=== PATIENT | female | born 1940 | race Caucasian/White ===

== ENCOUNTER 2017-08-29 19:01 | Emergency (ER) | payer MEDICARE, MEDICAID ==
[~2017-08-29] VITALS: Ht 149.9 cm; Wt 46.8 kg
[2017-08-29 20:09] LABS: BASOPHILS # (AUTO) 0.06 K/uL (0.00-0.20); BASOPHILS % (AUTO) 0.6 % (0.0-2.0); EOSINOPHILS % (AUTO) 0.88 % (1.0-6.0); HEMATOCRIT 37.8 % (36-46); HEMOGLOBIN 12.5 g/dL (12.0-16.0); LYMPHOCYTES % (AUTO) 27.7 % (22.0-44.0); MEAN CORPUSCULAR HEMOGLOBIN 32.2 pg (26.0-34.0); MEAN CORPUSCULAR HGB CONC 33.1 G/dL (31.0-37.0); MEAN CORPUSCULAR VOLUME 97 fL (80-100); MONOCYTES # (AUTO) 0.8 K/uL (0.1-1.0); MONOCYTES % (AUTO) 7.3 % (2.0-9.0); NEUTROPHILS # (AUTO) 6.9 K/uL (1.8-7.7); NEUTROPHILS % (AUTO) 63.6 % (40.0-70.0); PLATELET COUNT (AUTO) 285 K/uL (150-450); RED BLOOD CELL COUNT(AUTO) 3.88 MIL/uL (4.00-5.20); RED CELL DISTRIBUTION WIDTH 15.5 % (11.5-14.5); WHITE BLOOD COUNT (AUTO) 10.9 K/uL (4.5-11.0)
[2017-08-29 20:33] LABS: ORIG DRAW (USER) PTCARESTAF
[2017-08-29 20:47] LABS: GLUCOSE,POINT OF CARE 71 MG/DL (70-110)
[2017-08-29 20:52] LABS: ADD UA MICROSCOPIC YES; APPEARANCE,URINE CLEAR (CLEAR); GLUCOSE, URINE (UA) NEGATIVE (NEGATIVE); KETONES,URINE NEGATIVE (NEGATIVE); LEUKOCYTE ESTERASE ,URINE NEGATIVE (NEGATIVE); OCCULT BLOOD,URINE TRACE (NEGATIVE); PH,URINE 6.5 (5.0-8.0); PROTEIN,URINE SEE CONFIRM (NEGATIVE)
[2017-08-29 20:53] LABS: RBC,URINE 0-2 /HPF (0-2); SULFOSALICYLIC ACID,URINE 1+ (Negative); WBC,URINE None Seen /HPF (0-5)
[2017-08-29 20:55] LABS: ANION GAP 11 mmol/L (8-16); CALCIUM, TOTAL 8.3 mg/dL (8.8-10.5); CARBON DIOXIDE 22 mmol/L (22-29); CHLORIDE 103 mmol/L (98-107); CREATININE 1.95 mg/dL (0.60-1.30); GLOMERULAR FILTR. RATE CALC 25 mL/min (>60); SODIUM SERUM 136 mmol/L (136-145); UREA NITROGEN, BLOOD 65 mg/dL (7-18)
[2017-08-29 20:59] LABS: INR 1.1 (0.9-1.1); PROTHROMBIN TIME 11.1 SEC (9.4-11.6)
[2017-08-29 21:03] LABS: AMMONIA 15 umol/L (11-32)
[2017-08-29 21:04] LABS: TROPONIN I < 0.02 ng/mL (0.00-0.05)
[2017-08-29 21:21] LABS: ALANINE AMINOTRANSFERASE 20 U/L (12-78); ALBUMIN 2.9 g/dL (3.4-5.0); ASPARTATE AMINOTRANSFERASE 19 U/L (15-37); BILIRUBIN,TOTAL 0.2 mg/dL (0.1-1.0); CREATINE KINASE MB 1.8 ng/mL (0-5); CREATINE KINASE, TOTAL 89 U/L (26-192); TOTAL PROTEIN, SERUM 6.8 g/dL (6.4-8.2)
[2017-08-29 21:32] LABS: GLUCOSE,POINT OF CARE 146 MG/DL (70-110)
[2017-08-29 22:17] VITALS: BP 154/79
[2017-08-29 22:27] LABS: GLUCOSE,POINT OF CARE 218 MG/DL (70-110)
== END 2017-08-29 22:29 | disposition home or self-care (01) ==
LOC: EMS 19:05
DX: E11.65 Type 2 diabetes mellitus with hyperglycemia (principal); F03.90 Unspecified dementia, unspecified severity, without behavioral disturbance, psychotic disturbance, mood disturbance, and anxiety; I10 Essential (primary) hypertension
CPT/HCPCS: 51702; 82962; 93005; 99285

== ENCOUNTER 2020-01-02 17:07 | Inpatient (IN) | payer MEDICARE, MEDICAID ==
[~2020-01-02] VITALS: Ht 165.1 cm; Wt 60.3 kg
[2020-01-02] MEDS ORDERED: BUME1TAB34 PO (17:42)
[2020-01-02] MEDS ORDERED: INSLAN SQ ×2 (17:42→21:54)
[2020-01-02 18:10] LABS: BASOPHILS % (AUTO) 0.3 % (0.0-2.0); EOSINOPHILS % (AUTO) 0.9 % (1.0-6.0); HEMATOCRIT 22.2 % (36-46); LYMPHOCYTES % (AUTO) 5.4 % (22.0-44.0); MEAN CORPUSCULAR HEMOGLOBIN 30.6 pg (26.0-34.0); MEAN CORPUSCULAR HGB CONC 31.4 G/dL (31.0-37.0); MEAN CORPUSCULAR VOLUME 98 fL (80-100); MONOCYTES # (AUTO) 0.9 K/uL (0.1-1.0); MONOCYTES % (AUTO) 4.8 % (2.0-9.0); NEUTROPHILS # (AUTO) 16.4 K/uL (1.8-7.7); PLATELET COUNT (AUTO) 335 K/uL (150-450); RED BLOOD CELL COUNT(AUTO) 2.28 MIL/uL (4.00-5.20); RED CELL DISTRIBUTION WIDTH 19.6 % (11.5-14.5)
[2020-01-02 18:15] LABS: CALCIUM, TOTAL 8.4 mg/dL (8.8-10.5); CREATININE 3.55 mg/dL (0.60-1.30); NEUTROPHILS % (AUTO) 88.6 % (40.0-70.0); POTASSIUM 3.6 mmol/L (3.5-5.1)
[2020-01-02 18:18] LABS: INR 1.1 (0.9-1.1); PROTHROMBIN TIME 11.5 SEC (9.4-11.6)
[2020-01-02 18:21] LABS: ALBUMIN 1.9 g/dL (3.4-5.0); BILIRUBIN,TOTAL 0.3 mg/dL (0.1-1.0); TOTAL PROTEIN, SERUM 6.9 g/dL (6.4-8.2)
[2020-01-02 18:30] LABS: C-REACTIVE PROTEIN QUANT 13.54 mg/dL (0.00-0.30)
[2020-01-02] MEDS ORDERED: AZITHROMYCIN 500 MG/NS 250 ML IV ONE (18:30)
[2020-01-02] MEDS ORDERED: CefTRIAXone 1 GM/DEXTROSE 50 ML IV ONE (18:30)
[2020-01-02] MEDS ORDERED: ACETAMINOPHEN 325 MG TABLET PO PRN (19:15)
[2020-01-02] MEDS ORDERED: 0.9% SODIUM CHLORIDE 10 ML SYRINGE IVP PRN (19:15)
[2020-01-02] MEDS ORDERED: LOSA-88 PO (21:54)
[2020-01-02] MEDS ORDERED: CLOP75TA3 PO (21:54)
[2020-01-02] MEDS ORDERED: PYRI50 PO (21:54)
[2020-01-02] MEDS ORDERED: PANT40TA25 PO (21:54)
[2020-01-02] MEDS ORDERED: CALC0.25 PO (21:54)
[2020-01-02] MEDS ORDERED: AMLO5TAB9 PO (21:54)
[2020-01-02] MEDS ORDERED: ASPI-728 PO (21:54)
[2020-01-02] MEDS ORDERED: CARV12 PO (21:54)
[2020-01-02] MEDS ORDERED: MIRT30 PO (21:54)
[2020-01-02] MEDS ORDERED: CARV6 PO (21:54)
[2020-01-02] MEDS ORDERED: ATOR40TA28 PO (21:54)
[2020-01-02] MEDS ORDERED: ERGO500054 PO (21:54)
[2020-01-02] MEDS ORDERED: FOLI1 PO (21:54)
[2020-01-02] MEDS ORDERED: TRAZ-252 PO (21:54)
[2020-01-02] MEDS ORDERED: CYAN100T3 PO (21:54)
[2020-01-02] MEDS ORDERED: ALLO100T PO (21:54)
[2020-01-02] MEDS ORDERED: SITA100 PO (21:54)
[2020-01-02] MEDS ORDERED: LEVO50 PO (21:54)
[2020-01-02 22:25] VITALS: BP 119/56
[2020-01-03] VITALS (11 sets, daily range): BP systolic 126–140; BP diastolic 41–61
[2020-01-03 05:41] LABS: GLUCOMETER DEV NAME(LOC) 5N.1; GLUCOSE,POINT OF CARE 122 MG/DL (70-110)
[2020-01-03 06:40] LABS: BASOPHILS % (AUTO) 0.1 % (0.0-2.0); EOSINOPHILS % (AUTO) 0.9 % (1.0-6.0); LYMPHOCYTES # (AUTO) 1.8 K/uL (1.0-4.8); LYMPHOCYTES % (AUTO) 12.3 % (22.0-44.0); MEAN CORPUSCULAR HEMOGLOBIN 31.5 pg (26.0-34.0); MEAN CORPUSCULAR HGB CONC 32.5 G/dL (31.0-37.0); MEAN CORPUSCULAR VOLUME 97 fL (80-100); MONOCYTES # (AUTO) 0.8 K/uL (0.1-1.0); MONOCYTES % (AUTO) 5.4 % (2.0-9.0); NEUTROPHILS # (AUTO) 11.9 K/uL (1.8-7.7); NEUTROPHILS % (AUTO) 81.3 % (40.0-70.0); PLATELET COUNT (AUTO) 315 K/uL (150-450); RED BLOOD CELL COUNT(AUTO) 2.09 MIL/uL (4.00-5.20); RED CELL DISTRIBUTION WIDTH 19.2 % (11.5-14.5)
[2020-01-03 07:03] LABS: HEMOGLOBIN 6.6 g/dL (12.0-16.0)
[2020-01-03 07:04] LABS: ALBUMIN 1.7 g/dL (3.4-5.0); BILIRUBIN,TOTAL 0.2 mg/dL (0.1-1.0); CALCIUM, TOTAL 8.2 mg/dL (8.8-10.5); CREATININE 4.27 mg/dL (0.60-1.30); HEMATOCRIT 20.3 % (36-46); POTASSIUM 3.8 mmol/L (3.5-5.1); TOTAL PROTEIN, SERUM 6.1 g/dL (6.4-8.2)
[2020-01-03] MEDS: PANTOPRAZOLE SODIUM 40 MG/VIAL IVP SCH (12:01)
[2020-01-03] MEDS: FOLIC ACID 1 MG TABLET PO SCH (12:38)
[2020-01-03] MEDS: CYANOCOBALAMIN 100 MCG TABLET PO SCH ×2 (12:38→21:46)
[2020-01-03] MEDS: CLOPIDOGREL BISULFATE 75 MG TABLET PO SCH (12:38)
[2020-01-03] MEDS: LEVOTHYROXINE SODIUM 50 MCG TABLET PO SCH (12:39)
[2020-01-03] MEDS: ALLOPURINOL 100 MG TABLET PO SCH (12:39)
[2020-01-03] MEDS: PIPERACILLIN SODIUM/TAZOBACTAM 2.25 GM in DEXTROSE 5%-WATER 50 ML IV SCH ×2 (12:40→20:37)
[2020-01-03] MEDS ORDERED: SODIUM CHLORIDE 0.9% 250 ML IV ONE (12:57)
[2020-01-03] MEDS ORDERED: SODIUM CHLORIDE 0.9% 500 ML IV ONE (14:36)
[2020-01-03 15:16] LABS: GLUCOMETER DEV NAME(LOC) 5S.2A; GLUCOSE,POINT OF CARE 178 MG/DL (70-110)
[2020-01-03] MEDS ORDERED: PANTOPRAZOLE SODIUM 40 MG DR TABLET PO SCH (21:00)
[2020-01-03] MEDS ORDERED: INSULIN GLARGINE,HUM.REC.ANLOG 100 UNITS/ML SQ SCH (21:00)
[2020-01-03] MEDS: CARVEDILOL 6.25 MG TABLET PO SCH (21:46)
[2020-01-04 00:03] VITALS: BP 150/61
[2020-01-04 01:05] LABS: GLUCOMETER DEV NAME(LOC) 5N.1; GLUCOSE,POINT OF CARE 118 MG/DL (70-110)
[2020-01-04 03:49] VITALS: BP 105/69
[2020-01-04] MEDS: LEVOTHYROXINE SODIUM 50 MCG TABLET PO SCH (05:42)
[2020-01-04] MEDS: PIPERACILLIN SODIUM/TAZOBACTAM 2.25 GM in DEXTROSE 5%-WATER 50 ML IV SCH ×3 (05:51→21:52)
[2020-01-04 06:58] LABS: BASOPHILS % (AUTO) 0.3 % (0.0-2.0); EOSINOPHILS % (AUTO) 0.6 % (1.0-6.0); HEMATOCRIT 25.2 % (36-46); HEMOGLOBIN 8.3 g/dL (12.0-16.0); LYMPHOCYTES # (AUTO) 1.5 K/uL (1.0-4.8); LYMPHOCYTES % (AUTO) 10.8 % (22.0-44.0); MEAN CORPUSCULAR HGB CONC 32.9 G/dL (31.0-37.0); MEAN CORPUSCULAR VOLUME 94 fL (80-100); MONOCYTES # (AUTO) 0.7 K/uL (0.1-1.0); MONOCYTES % (AUTO) 4.8 % (2.0-9.0); NEUTROPHILS # (AUTO) 11.7 K/uL (1.8-7.7); NEUTROPHILS % (AUTO) 83.5 % (40.0-70.0); PLATELET COUNT (AUTO) 346 K/uL (150-450); RED BLOOD CELL COUNT(AUTO) 2.68 MIL/uL (4.00-5.20); RED CELL DISTRIBUTION WIDTH 19.4 % (11.5-14.5)
[2020-01-04] MEDS ORDERED: SODIUM CHLORIDE 0.9% 1,000 ML ONE ×2 (07:06)
[2020-01-04 07:12] LABS: % IRON SATURATION 21.4 % (22-44)
[2020-01-04 07:19] LABS: CALCIUM, TOTAL 8.1 mg/dL (8.8-10.5); CREATININE 5.36 mg/dL (0.60-1.30); MAGNESIUM 1.7 mg/dL (1.80-2.40); POTASSIUM 4.3 mmol/L (3.5-5.1); THYROID STIMULATING HORMONE 3.71 uIU/mL (0.36-3.74)
[2020-01-04 07:48] LABS: HEMOGLOBIN A1C 5.9 % (3.8-5.6)
[2020-01-04 07:57] VITALS: BP 133/54
[2020-01-04] MEDS: CALCITRIOL 0.25 MCG CAPSULE PO SCH (08:45)
[2020-01-04] MEDS: MIRTAZAPINE 15 MG TABLET PO SCH (08:45)
[2020-01-04] MEDS: TraZODone HCL 50 MG TABLET PO SCH (08:45)
[2020-01-04] MEDS: CARVEDILOL 6.25 MG TABLET PO SCH ×2 (08:46→21:51)
[2020-01-04] MEDS: AmLODIPine BESYLATE 5 MG TABLET PO SCH (08:46)
[2020-01-04] MEDS: EPOETIN ALFA 10,000 UNITS/ML VIAL SQ SCH (08:46)
[2020-01-04] MEDS: PANTOPRAZOLE SODIUM 40 MG/VIAL IVP SCH (08:46)
[2020-01-04] MEDS: FOLIC ACID 1 MG TABLET PO SCH (08:46)
[2020-01-04] MEDS: PYRIDOXINE HCL 50 MG TABLET PO SCH (08:46)
[2020-01-04] MEDS: CYANOCOBALAMIN 100 MCG TABLET PO SCH ×2 (08:46→21:52)
[2020-01-04] MEDS: CLOPIDOGREL BISULFATE 75 MG TABLET PO SCH (08:46)
[2020-01-04] MEDS: ALLOPURINOL 100 MG TABLET PO SCH (08:46)
[2020-01-04] MEDS: ATORVASTATIN CALCIUM 40 MG TABLET PO SCH (08:46)
[2020-01-04] MEDS ORDERED: SitaGLIPtin PHOSPHATE 100 MG TABLET PO SCH (09:00)
[2020-01-04] MEDS ORDERED: ASPIRIN 81 MG CHEWABLE TABLET PO SCH (09:00)
[2020-01-04 11:00] VITALS: BP 161/55
[2020-01-04] MEDS: SEVELAMER CARBONATE 800 MG TABLET PO SCH ×2 (12:16→17:53)
[2020-01-04] MEDS: SOD FERRIC GLUC COMPLX/SUCROSE 125 MG in SODIUM CHLORIDE 0.9% 100 ML IV SCH (14:59)
[2020-01-04 15:10] VITALS: BP 153/52
[2020-01-04 19:40] VITALS: BP 137/73
[2020-01-05] VITALS (7 sets, daily range): BP systolic 138–156; BP diastolic 53–104
[2020-01-05] MEDS: LEVOTHYROXINE SODIUM 50 MCG TABLET PO SCH (05:47)
[2020-01-05] MEDS: PIPERACILLIN SODIUM/TAZOBACTAM 2.25 GM in DEXTROSE 5%-WATER 50 ML IV SCH ×3 (05:47→22:02)
[2020-01-05 07:26] LABS: BASOPHILS % (AUTO) 0.2 % (0.0-2.0); EOSINOPHILS % (AUTO) 0.6 % (1.0-6.0); HEMATOCRIT 25.6 % (36-46); HEMOGLOBIN 8.4 g/dL (12.0-16.0); LYMPHOCYTES # (AUTO) 1.2 K/uL (1.0-4.8); MEAN CORPUSCULAR HEMOGLOBIN 30.8 pg (26.0-34.0); MEAN CORPUSCULAR HGB CONC 32.7 G/dL (31.0-37.0); MEAN CORPUSCULAR VOLUME 94 fL (80-100); MONOCYTES # (AUTO) 0.9 K/uL (0.1-1.0); MONOCYTES % (AUTO) 6.4 % (2.0-9.0); NEUTROPHILS # (AUTO) 11.6 K/uL (1.8-7.7); NEUTROPHILS % (AUTO) 83.8 % (40.0-70.0); PLATELET COUNT (AUTO) 329 K/uL (150-450); RED BLOOD CELL COUNT(AUTO) 2.73 MIL/uL (4.00-5.20); RED CELL DISTRIBUTION WIDTH 19.1 % (11.5-14.5)
[2020-01-05 07:41] LABS: ALBUMIN 1.9 g/dL (3.4-5.0); BILIRUBIN,TOTAL 0.2 mg/dL (0.1-1.0); CALCIUM, TOTAL 8.4 mg/dL (8.8-10.5); CREATININE 3.09 mg/dL (0.60-1.30); POTASSIUM 3.9 mmol/L (3.5-5.1); TOTAL PROTEIN, SERUM 6.6 g/dL (6.4-8.2)
[2020-01-05] MEDS: PANTOPRAZOLE SODIUM 40 MG/VIAL IVP SCH (09:18)
[2020-01-05] MEDS: CALCITRIOL 0.25 MCG CAPSULE PO SCH (09:19)
[2020-01-05] MEDS: SEVELAMER CARBONATE 800 MG TABLET PO SCH ×3 (09:19→18:00)
[2020-01-05] MEDS: FOLIC ACID 1 MG TABLET PO SCH (09:19)
[2020-01-05] MEDS: CYANOCOBALAMIN 100 MCG TABLET PO SCH ×2 (09:19→22:02)
[2020-01-05] MEDS: CARVEDILOL 6.25 MG TABLET PO SCH ×2 (09:19→22:02)
[2020-01-05] MEDS: ATORVASTATIN CALCIUM 40 MG TABLET PO SCH (09:19)
[2020-01-05] MEDS: AmLODIPine BESYLATE 5 MG TABLET PO SCH (09:19)
[2020-01-05] MEDS: MIRTAZAPINE 15 MG TABLET PO SCH (09:19)
[2020-01-05] MEDS: PYRIDOXINE HCL 50 MG TABLET PO SCH (09:19)
[2020-01-05] MEDS: TraZODone HCL 50 MG TABLET PO SCH (09:19)
[2020-01-05] MEDS: CLOPIDOGREL BISULFATE 75 MG TABLET PO SCH (09:19)
[2020-01-05] MEDS: ALLOPURINOL 100 MG TABLET PO SCH (12:38)
[2020-01-05] MEDS ORDERED: SODIUM CHLORIDE 0.9% 2,000 ML ONE (13:55)
[2020-01-05] MEDS: SOD FERRIC GLUC COMPLX/SUCROSE 125 MG in SODIUM CHLORIDE 0.9% 100 ML IV SCH (14:06)
[2020-01-05] MEDS ORDERED: IOVERSOL 320 MG/ML 100 ML VIAL ONE (17:43)
[2020-01-05] MEDS ORDERED: SODIUM CHLORIDE 0.9% 100 ML ONE (17:43)
[2020-01-05] MEDS ORDERED: SODIUM CHLORIDE 0.9% 250 ML IV ONE (21:37)
[2020-01-06 04:31] VITALS: BP 154/52
[2020-01-06] MEDS: LEVOTHYROXINE SODIUM 50 MCG TABLET PO SCH (05:56)
[2020-01-06] MEDS ORDERED: SODIUM CHLORIDE 0.9% 1,000 ML ONE ×2 (06:18)
[2020-01-06 06:58] LABS: BASOPHILS % (AUTO) 0.1 % (0.0-2.0); EOSINOPHILS % (AUTO) 1.2 % (1.0-6.0); HEMATOCRIT 26.7 % (36-46); HEMOGLOBIN 8.7 g/dL (12.0-16.0); LYMPHOCYTES # (AUTO) 1.8 K/uL (1.0-4.8); LYMPHOCYTES % (AUTO) 15.1 % (22.0-44.0); MEAN CORPUSCULAR HEMOGLOBIN 30.9 pg (26.0-34.0); MEAN CORPUSCULAR HGB CONC 32.7 G/dL (31.0-37.0); MEAN CORPUSCULAR VOLUME 95 fL (80-100); NEUTROPHILS # (AUTO) 9.1 K/uL (1.8-7.7); NEUTROPHILS % (AUTO) 75.6 % (40.0-70.0); PLATELET COUNT (AUTO) 333 K/uL (150-450); RED BLOOD CELL COUNT(AUTO) 2.82 MIL/uL (4.00-5.20)
[2020-01-06 07:23] LABS: ALBUMIN 1.7 g/dL (3.4-5.0); BILIRUBIN,TOTAL 0.2 mg/dL (0.1-1.0); CALCIUM, TOTAL 8.1 mg/dL (8.8-10.5); CREATININE 3.9 mg/dL (0.60-1.30); POTASSIUM 4.3 mmol/L (3.5-5.1); TOTAL PROTEIN, SERUM 6.2 g/dL (6.4-8.2)
[2020-01-06] MEDS: AmLODIPine BESYLATE 5 MG TABLET PO SCH (08:22)
[2020-01-06] MEDS: TraZODone HCL 50 MG TABLET PO SCH (08:23)
[2020-01-06] MEDS: MIRTAZAPINE 15 MG TABLET PO SCH (08:23)
[2020-01-06] MEDS: CALCITRIOL 0.25 MCG CAPSULE PO SCH (08:23)
[2020-01-06] MEDS: CARVEDILOL 6.25 MG TABLET PO SCH ×2 (08:23→21:23)
[2020-01-06] MEDS: SEVELAMER CARBONATE 800 MG TABLET PO SCH ×3 (08:23→18:28)
[2020-01-06] MEDS: FOLIC ACID 1 MG TABLET PO SCH (08:23)
[2020-01-06] MEDS: PYRIDOXINE HCL 50 MG TABLET PO SCH (08:23)
[2020-01-06] MEDS: ATORVASTATIN CALCIUM 40 MG TABLET PO SCH (08:23)
[2020-01-06] MEDS: CLOPIDOGREL BISULFATE 75 MG TABLET PO SCH (08:23)
[2020-01-06] MEDS: CYANOCOBALAMIN 100 MCG TABLET PO SCH ×2 (08:23→21:23)
[2020-01-06] MEDS: ALLOPURINOL 100 MG TABLET PO SCH (08:23)
[2020-01-06] MEDS: PANTOPRAZOLE SODIUM 40 MG/VIAL IVP SCH (08:24)
[2020-01-06] MEDS: PIPERACILLIN SODIUM/TAZOBACTAM 2.25 GM in DEXTROSE 5%-WATER 50 ML IV SCH ×3 (08:26→21:23)
[2020-01-06] MEDS: EPOETIN ALFA 10,000 UNITS/ML VIAL SQ SCH (08:26)
[2020-01-06 08:40] VITALS: BP 115/57
[2020-01-06 11:24] VITALS: BP 139/51
[2020-01-06] MEDS: SOD FERRIC GLUC COMPLX/SUCROSE 125 MG in SODIUM CHLORIDE 0.9% 100 ML IV SCH (14:16)
[2020-01-06 15:27] VITALS: BP 141/50
[2020-01-06 17:31] LABS: APPEARANCE,URINE TURBID (CLEAR); GLUCOSE, URINE (UA) NEGATIVE (NEGATIVE); KETONES,URINE NEGATIVE (NEGATIVE); LEUKOCYTE ESTERASE ,URINE NEGATIVE (NEGATIVE); NITRATE,URINE NEGATIVE (NEGATIVE); OCCULT BLOOD,URINE NEGATIVE (NEGATIVE); PROTEIN,URINE SEE CONFIRM (NEGATIVE); UROBILINOGEN,URINE 0.2 mg/dL (<=1.0)
[2020-01-06 17:34] LABS: BILIRUBIN,URINE PRELIM. POSITIVE (NEGATIVE)
[2020-01-06 17:42] LABS: SULFOSALICYLIC ACID,URINE 4+ (Negative)
[2020-01-06 17:43] LABS: BACTERIA,URINE Many /HPF (None Seen); RBC,URINE 0-2 /HPF (0-2); WBC,URINE Full Field /HPF (0-5)
[2020-01-06 17:44] LABS: SQUAMOUS EPITHELIAL CELL,UR Few /LPF (None Seen)
[2020-01-06 19:57] VITALS: BP 144/53
[2020-01-07] VITALS (7 sets, daily range): BP systolic 128–147; BP diastolic 42–57
[2020-01-07] MEDS: LEVOTHYROXINE SODIUM 50 MCG TABLET PO SCH (06:25)
[2020-01-07] MEDS: PIPERACILLIN SODIUM/TAZOBACTAM 2.25 GM in DEXTROSE 5%-WATER 50 ML IV SCH ×3 (06:25→21:14)
[2020-01-07] MEDS ORDERED: SEVELAMER CARBONATE 800 MG POWDER PACKET PO SCH (08:00)
[2020-01-07 08:40] LABS: BASOPHILS % (AUTO) 0.5 % (0.0-2.0); HEMATOCRIT 26.2 % (36-46); HEMOGLOBIN 8.4 g/dL (12.0-16.0); LYMPHOCYTES # (AUTO) 1.8 K/uL (1.0-4.8); LYMPHOCYTES % (AUTO) 18.2 % (22.0-44.0); MEAN CORPUSCULAR HEMOGLOBIN 30.6 pg (26.0-34.0); MEAN CORPUSCULAR HGB CONC 32.1 G/dL (31.0-37.0); MEAN CORPUSCULAR VOLUME 95 fL (80-100); MONOCYTES # (AUTO) 0.8 K/uL (0.1-1.0); NEUTROPHILS # (AUTO) 7.1 K/uL (1.8-7.7); NEUTROPHILS % (AUTO) 71.3 % (40.0-70.0); PLATELET COUNT (AUTO) 352 K/uL (150-450); RED BLOOD CELL COUNT(AUTO) 2.75 MIL/uL (4.00-5.20)
[2020-01-07] MEDS ORDERED: SEVELAMER CARBONATE 800 MG POWDER PACKET GT SCH (08:59)
[2020-01-07] MEDS: CARVEDILOL 6.25 MG TABLET PO SCH ×2 (09:01→21:14)
[2020-01-07] MEDS: PANTOPRAZOLE SODIUM 40 MG/VIAL IVP SCH (09:01)
[2020-01-07] MEDS: TraZODone HCL 50 MG TABLET PO SCH (09:02)
[2020-01-07] MEDS: FOLIC ACID 1 MG TABLET PO SCH (09:02)
[2020-01-07] MEDS: ATORVASTATIN CALCIUM 40 MG TABLET PO SCH (09:02)
[2020-01-07] MEDS: CLOPIDOGREL BISULFATE 75 MG TABLET PO SCH (09:02)
[2020-01-07] MEDS: AmLODIPine BESYLATE 5 MG TABLET PO SCH (09:02)
[2020-01-07 09:03] LABS: ALBUMIN 1.7 g/dL (3.4-5.0); BILIRUBIN,TOTAL 0.2 mg/dL (0.1-1.0); CALCIUM, TOTAL 8.3 mg/dL (8.8-10.5); CREATININE 2.87 mg/dL (0.60-1.30); POTASSIUM 3.8 mmol/L (3.5-5.1)
[2020-01-07] MEDS: MIRTAZAPINE 15 MG TABLET PO SCH (09:03)
[2020-01-07] MEDS: PYRIDOXINE HCL 50 MG TABLET PO SCH (09:03)
[2020-01-07] MEDS: ALLOPURINOL 100 MG TABLET PO SCH (09:03)
[2020-01-07] MEDS: CYANOCOBALAMIN 100 MCG TABLET PO SCH ×2 (09:03→21:16)
[2020-01-07] MEDS: CALCITRIOL 0.25 MCG CAPSULE PO SCH (09:03)
[2020-01-07] MEDS: SEVELAMER CARBONATE 800 MG POWDER PACKET GT SCH ×3 (09:47→17:33)
[2020-01-07] MEDS: SOD FERRIC GLUC COMPLX/SUCROSE 125 MG in SODIUM CHLORIDE 0.9% 100 ML IV SCH (14:04)
[2020-01-07] MEDS ORDERED: DEXTROSE 50%-WATER 25 GM/50 ML SYRINGE IVP PRN (14:15)
[2020-01-07] MEDS: INSULIN LISPRO 100 UNITS/ML SQ PRN ×2 (14:35→17:33)
[2020-01-07 23:13] LABS: GLUCOMETER DEV NAME(LOC) 5S.1; GLUCOSE,POINT OF CARE 359 MG/DL (70-110)
[2020-01-07 23:13] LABS: GLUCOMETER DEV NAME(LOC) 5S.1; GLUCOSE,POINT OF CARE 161 MG/DL (70-110)
[2020-01-08] MEDS: INSULIN LISPRO 100 UNITS/ML SQ PRN ×2 (00:22→17:41)
[2020-01-08 03:45] VITALS: BP 160/54
[2020-01-08 05:13] LABS: GLUCOMETER DEV NAME(LOC) 5S.1; GLUCOSE,POINT OF CARE 189 MG/DL (70-110)
[2020-01-08 06:55] LABS: ALBUMIN 1.8 g/dL (3.4-5.0); BILIRUBIN,TOTAL 0.2 mg/dL (0.1-1.0); CALCIUM, TOTAL 8.7 mg/dL (8.8-10.5); CREATININE 3.67 mg/dL (0.60-1.30); POTASSIUM 3.7 mmol/L (3.5-5.1); TOTAL PROTEIN, SERUM 6.1 g/dL (6.4-8.2)
[2020-01-08 06:58] LABS: BASOPHILS % (AUTO) 0.6 % (0.0-2.0); EOSINOPHILS % (AUTO) 3.4 % (1.0-6.0); HEMATOCRIT 26.7 % (36-46); HEMOGLOBIN 8.8 g/dL (12.0-16.0); LYMPHOCYTES # (AUTO) 1.9 K/uL (1.0-4.8); LYMPHOCYTES % (AUTO) 17.6 % (22.0-44.0); MEAN CORPUSCULAR HEMOGLOBIN 31.5 pg (26.0-34.0); MEAN CORPUSCULAR HGB CONC 32.8 G/dL (31.0-37.0); MEAN CORPUSCULAR VOLUME 96 fL (80-100); MONOCYTES # (AUTO) 0.8 K/uL (0.1-1.0); MONOCYTES % (AUTO) 7.1 % (2.0-9.0); NEUTROPHILS # (AUTO) 7.6 K/uL (1.8-7.7); NEUTROPHILS % (AUTO) 71.3 % (40.0-70.0); PLATELET COUNT (AUTO) 374 K/uL (150-450); RED BLOOD CELL COUNT(AUTO) 2.78 MIL/uL (4.00-5.20); RED CELL DISTRIBUTION WIDTH 18.6 % (11.5-14.5)
[2020-01-08 07:44] VITALS: BP 147/53
[2020-01-08] MEDS: LEVOTHYROXINE SODIUM 50 MCG TABLET PO SCH (08:33)
[2020-01-08] MEDS: FOLIC ACID 1 MG TABLET PO SCH (08:33)
[2020-01-08] MEDS: ATORVASTATIN CALCIUM 40 MG TABLET PO SCH (08:33)
[2020-01-08] MEDS: PANTOPRAZOLE SODIUM 40 MG/VIAL IVP SCH (08:34)
[2020-01-08] MEDS: SEVELAMER CARBONATE 800 MG POWDER PACKET GT SCH ×3 (08:34→17:40)
[2020-01-08] MEDS: CYANOCOBALAMIN 100 MCG TABLET PO SCH ×2 (08:35→20:42)
[2020-01-08] MEDS: TraZODone HCL 50 MG TABLET PO SCH (08:35)
[2020-01-08] MEDS: MIRTAZAPINE 15 MG TABLET PO SCH (08:35)
[2020-01-08] MEDS: CALCITRIOL 0.25 MCG CAPSULE PO SCH (08:35)
[2020-01-08] MEDS: ALLOPURINOL 100 MG TABLET PO SCH (08:36)
[2020-01-08] MEDS: PYRIDOXINE HCL 50 MG TABLET PO SCH (08:36)
[2020-01-08] MEDS: CARVEDILOL 6.25 MG TABLET PO SCH ×2 (09:00→20:42)
[2020-01-08] MEDS: CLOPIDOGREL BISULFATE 75 MG TABLET PO SCH (09:00)
[2020-01-08] MEDS: AmLODIPine BESYLATE 5 MG TABLET PO SCH (10:39)
[2020-01-08] MEDS ORDERED: SODIUM CHLORIDE 0.9% 1,000 ML ONE ×2 (11:08)
[2020-01-08] MEDS: EPOETIN ALFA 10,000 UNITS/ML VIAL SQ SCH ×2 (11:10→16:07)
[2020-01-08 11:35] VITALS: BP 149/57
[2020-01-08 15:56] VITALS: BP 154/60
[2020-01-08] MEDS: PIPERACILLIN SODIUM/TAZOBACTAM 2.25 GM in DEXTROSE 5%-WATER 50 ML IV SCH ×2 (16:08→20:42)
[2020-01-08] MEDS: SOD FERRIC GLUC COMPLX/SUCROSE 125 MG in SODIUM CHLORIDE 0.9% 100 ML IV SCH (17:02)
[2020-01-08 17:21] LABS: GLUCOMETER DEV NAME(LOC) 5S.1; GLUCOSE,POINT OF CARE 179 MG/DL (70-110)
[2020-01-08 17:21] LABS: GLUCOMETER DEV NAME(LOC) 5S.1; GLUCOSE,POINT OF CARE 184 MG/DL (70-110)
[2020-01-08 20:00] VITALS: BP 152/59
[2020-01-09] VITALS (7 sets, daily range): BP systolic 133–175; BP diastolic 58–86
[2020-01-09 00:11] LABS: GLUCOMETER DEV NAME(LOC) 5S.1; GLUCOSE,POINT OF CARE 216 MG/DL (70-110)
[2020-01-09] MEDS: INSULIN LISPRO 100 UNITS/ML SQ PRN ×4 (00:17→17:47)
[2020-01-09] MEDS: PIPERACILLIN SODIUM/TAZOBACTAM 2.25 GM in DEXTROSE 5%-WATER 50 ML IV SCH (04:53)
[2020-01-09] MEDS: LEVOTHYROXINE SODIUM 50 MCG TABLET PO SCH (05:43)
[2020-01-09 07:22] LABS: BASOPHILS % (AUTO) 0.6 % (0.0-2.0); EOSINOPHILS % (AUTO) 2.4 % (1.0-6.0); HEMATOCRIT 25.8 % (36-46); HEMOGLOBIN 8.7 g/dL (12.0-16.0); LYMPHOCYTES # (AUTO) 1.6 K/uL (1.0-4.8); LYMPHOCYTES % (AUTO) 15.6 % (22.0-44.0); MEAN CORPUSCULAR HEMOGLOBIN 32.4 pg (26.0-34.0); MEAN CORPUSCULAR HGB CONC 33.8 G/dL (31.0-37.0); MEAN CORPUSCULAR VOLUME 96 fL (80-100); MONOCYTES # (AUTO) 0.9 K/uL (0.1-1.0); MONOCYTES % (AUTO) 8.2 % (2.0-9.0); NEUTROPHILS # (AUTO) 7.7 K/uL (1.8-7.7); NEUTROPHILS % (AUTO) 73.2 % (40.0-70.0); PLATELET COUNT (AUTO) 372 K/uL (150-450); RED BLOOD CELL COUNT(AUTO) 2.69 MIL/uL (4.00-5.20); RED CELL DISTRIBUTION WIDTH 18.7 % (11.5-14.5)
[2020-01-09 07:35] LABS: ALBUMIN 1.9 g/dL (3.4-5.0); BILIRUBIN,TOTAL 0.2 mg/dL (0.1-1.0); CALCIUM, TOTAL 8.7 mg/dL (8.8-10.5); CREATININE 1.96 mg/dL (0.60-1.30); POTASSIUM 3.1 mmol/L (3.5-5.1)
[2020-01-09] MEDS: PANTOPRAZOLE SODIUM 40 MG/VIAL IVP SCH (09:01)
[2020-01-09] MEDS: ALLOPURINOL 100 MG TABLET PO SCH (09:01)
[2020-01-09] MEDS: SEVELAMER CARBONATE 800 MG POWDER PACKET GT SCH ×3 (09:01→17:45)
[2020-01-09] MEDS: TraZODone HCL 50 MG TABLET PO SCH (09:05)
[2020-01-09] MEDS: AmLODIPine BESYLATE 5 MG TABLET PO SCH (09:05)
[2020-01-09] MEDS: FOLIC ACID 1 MG TABLET PO SCH (09:06)
[2020-01-09] MEDS: MIRTAZAPINE 15 MG TABLET PO SCH (09:06)
[2020-01-09] MEDS: CYANOCOBALAMIN 100 MCG TABLET PO SCH ×2 (09:06→21:01)
[2020-01-09] MEDS: PYRIDOXINE HCL 50 MG TABLET PO SCH (09:07)
[2020-01-09] MEDS: CARVEDILOL 6.25 MG TABLET PO SCH ×2 (09:07→21:01)
[2020-01-09] MEDS: CLOPIDOGREL BISULFATE 75 MG TABLET PO SCH (09:07)
[2020-01-09] MEDS: CALCITRIOL 0.25 MCG CAPSULE PO SCH (09:07)
[2020-01-09] MEDS: ATORVASTATIN CALCIUM 40 MG TABLET PO SCH (09:07)
[2020-01-09] MEDS ORDERED: POTASSIUM CHLORIDE 10% 40 MEQ/30 ML LIQUID UDCUP PEG ONE (09:15)
[2020-01-09] MEDS ORDERED: LEVOFLOXACIN 500 MG TABLET PO SCH (09:45)
[2020-01-09] MEDS: SOD FERRIC GLUC COMPLX/SUCROSE 125 MG in SODIUM CHLORIDE 0.9% 100 ML IV SCH (12:40)
[2020-01-10] MEDS: INSULIN LISPRO 100 UNITS/ML SQ PRN ×3 (00:12→12:30)
[2020-01-10 04:42] VITALS: BP 164/68
[2020-01-10] MEDS: LEVOTHYROXINE SODIUM 50 MCG TABLET PO SCH (05:35)
[2020-01-10 06:26] LABS: GLUCOMETER DEV NAME(LOC) 5S.1; GLUCOSE,POINT OF CARE 192 MG/DL (70-110)
[2020-01-10 06:39] LABS: GLUCOMETER DEV NAME(LOC) 5N.1; GLUCOSE,POINT OF CARE 190 MG/DL (70-110)
[2020-01-10 06:39] LABS: GLUCOMETER DEV NAME(LOC) 5N.1; GLUCOSE,POINT OF CARE 171 MG/DL (70-110)
[2020-01-10 06:39] LABS: GLUCOMETER DEV NAME(LOC) 5N.1; GLUCOSE,POINT OF CARE 202 MG/DL (70-110)
[2020-01-10 06:39] LABS: GLUCOMETER DEV NAME(LOC) 5S.2A; GLUCOSE,POINT OF CARE 159 MG/DL (70-110)
[2020-01-10 07:21] LABS: BASOPHILS % (AUTO) 0.4 % (0.0-2.0); HEMATOCRIT 27.2 % (36-46); HEMOGLOBIN 9.1 g/dL (12.0-16.0); LYMPHOCYTES # (AUTO) 1.7 K/uL (1.0-4.8); LYMPHOCYTES % (AUTO) 18.8 % (22.0-44.0); MEAN CORPUSCULAR HEMOGLOBIN 32.5 pg (26.0-34.0); MEAN CORPUSCULAR HGB CONC 33.4 G/dL (31.0-37.0); MEAN CORPUSCULAR VOLUME 97 fL (80-100); MONOCYTES # (AUTO) 0.7 K/uL (0.1-1.0); MONOCYTES % (AUTO) 8.2 % (2.0-9.0); NEUTROPHILS # (AUTO) 6.3 K/uL (1.8-7.7); NEUTROPHILS % (AUTO) 69.6 % (40.0-70.0); PLATELET COUNT (AUTO) 400 K/uL (150-450); RED CELL DISTRIBUTION WIDTH 18.5 % (11.5-14.5)
[2020-01-10 07:46] VITALS: BP 157/65
[2020-01-10 07:51] LABS: ALBUMIN 1.9 g/dL (3.4-5.0); BILIRUBIN,TOTAL 0.2 mg/dL (0.1-1.0); CALCIUM, TOTAL 8.8 mg/dL (8.8-10.5); CREATININE 2.95 mg/dL (0.60-1.30); POTASSIUM 3.7 mmol/L (3.5-5.1); TOTAL PROTEIN, SERUM 5.9 g/dL (6.4-8.2)
[2020-01-10] MEDS: PANTOPRAZOLE SODIUM 40 MG/VIAL IVP SCH (09:00)
[2020-01-10] MEDS: CALCITRIOL 0.25 MCG CAPSULE PO SCH (09:00)
[2020-01-10] MEDS ORDERED: ERGOCALCIFEROL (VIT D2) 50,000 UNITS [1,250 MCG] CAPSULE PO SCH (09:00)
[2020-01-10] MEDS: CYANOCOBALAMIN 100 MCG TABLET PO SCH (09:01)
[2020-01-10] MEDS: MIRTAZAPINE 15 MG TABLET PO SCH (09:01)
[2020-01-10] MEDS: SEVELAMER CARBONATE 800 MG POWDER PACKET GT SCH ×3 (09:01→17:09)
[2020-01-10] MEDS: CARVEDILOL 6.25 MG TABLET PO SCH (09:02)
[2020-01-10] MEDS: ALLOPURINOL 100 MG TABLET PO SCH (09:02)
[2020-01-10] MEDS: FOLIC ACID 1 MG TABLET PO SCH (09:02)
[2020-01-10] MEDS: TraZODone HCL 50 MG TABLET PO SCH (09:02)
[2020-01-10] MEDS: ATORVASTATIN CALCIUM 40 MG TABLET PO SCH (09:02)
[2020-01-10] MEDS: PYRIDOXINE HCL 50 MG TABLET PO SCH (09:03)
[2020-01-10] MEDS: CLOPIDOGREL BISULFATE 75 MG TABLET PO SCH (09:03)
[2020-01-10] MEDS: AmLODIPine BESYLATE 5 MG TABLET PO SCH (09:05)
[2020-01-10] MEDS: SOD FERRIC GLUC COMPLX/SUCROSE 125 MG in SODIUM CHLORIDE 0.9% 100 ML IV SCH (12:24)
[2020-01-10 12:36] LABS: GLUCOMETER DEV NAME(LOC) 5N.1; GLUCOSE,POINT OF CARE 195 MG/DL (70-110)
[2020-01-10 12:42] VITALS: BP 183/68
[2020-01-10 16:17] VITALS: BP 174/67
[2020-01-10 16:31] VITALS: BP 169/65
== END 2020-01-10 19:30 | DRG 637 ==
LOC: EMS 17:12 → 5N 20:00 → 5S 01-05 01:02
PROVIDERS: ADMIT Hospitalist; ATTEND Hospitalist
PROC: 30233N1 Transfusion of Nonautologous Red Blood Cells into Peripheral Vein, Percutaneous Approach (ICD-10-PCS; principal; 2020-01-03)
PROC: 5A1D70Z Performance of Urinary Filtration, Intermittent, Less than 6 Hours Per Day (ICD-10-PCS; 2020-01-04)
PROC: 5A1D70Z Performance of Urinary Filtration, Intermittent, Less than 6 Hours Per Day (ICD-10-PCS; 2020-01-06)
PROC: 5A1D70Z Performance of Urinary Filtration, Intermittent, Less than 6 Hours Per Day (ICD-10-PCS; 2020-01-08)
DX: E11.649 Type 2 diabetes mellitus with hypoglycemia without coma (principal); J18.9 Pneumonia, unspecified organism; E43 Unspecified severe protein-calorie malnutrition; I13.2 Hypertensive heart and chronic kidney disease with heart failure and with stage 5 chronic kidney disease, or end stage renal disease; R65.10 Systemic inflammatory response syndrome (SIRS) of non-infectious origin without acute organ dysfunction; E87.1 Hypo-osmolality and hyponatremia; J98.11 Atelectasis; N18.6 End stage renal disease; I50.9 Heart failure, unspecified; M10.9 Gout, unspecified; F03.90 Unspecified dementia, unspecified severity, without behavioral disturbance, psychotic disturbance, mood disturbance, and anxiety; S30.810A Abrasion of lower back and pelvis, initial encounter; S91.302A Unspecified open wound, left foot, initial encounter; S91.301A Unspecified open wound, right foot, initial encounter; X58.XXXA Exposure to other specified factors, initial encounter; E03.9 Hypothyroidism, unspecified; E83.39 Other disorders of phosphorus metabolism; D50.9 Iron deficiency anemia, unspecified; E11.22 Type 2 diabetes mellitus with diabetic chronic kidney disease; E78.5 Hyperlipidemia, unspecified; Z20.828 Contact with and (suspected) exposure to other viral communicable diseases; Z68.22 Body mass index [BMI] 22.0-22.9, adult; Z79.02 Long term (current) use of antithrombotics/antiplatelets; Z79.4 Long term (current) use of insulin; Z99.2 Dependence on renal dialysis; Z79.82 Long term (current) use of aspirin; Z79.899 Other long term (current) drug therapy; Y93.89 Activity, other specified; Y92.89 Other specified places as the place of occurrence of the external cause; Y99.8 Other external cause status
CPT/HCPCS: 36430; 71260; 72193; 74160; 82271; 83036; 83540; 83550; 83605; 83735; 84100; 84132; 84145; 84443; 86140; 86706; 86850; 86900; 86901; 86923; 87040; 87081; 87086; 87340; 87635; 90935; 93005; C9113; J0456; J0696; J0885; J1815; J2543; J2916; J7030; J7040; J7050; J7060; P9016